=== PATIENT | male | born 2000 ===

== ENCOUNTER 2025-03-13 05:45 | Day surgery (SDC) | payer BC, MEDICAID, SELFPAY ==
[2025-03-13] VITALS (14 sets, daily range): BP systolic 105–119; BP diastolic 50–80; PULSE 49–68; RESP 8–16; TEMP 36–36.6; O2SAT 98–100; BMI 20.4
[2025-03-13] MEDS: Lactated Ringers 1,000 ML 80 ML IV (06:46)
--- NOTE | 2025-03-13 06:59 | W.ANESPRE ---
General Info Date of Service Date Performed: 03/13/25 Height: 6 ft Weight: 68.4 kg Body Mass Index (BMI): 20.4 Surgical Procedure: Operation Date: 03/13/25 07:40 Proposed Procedure Side Surgeon p Circumcision Alfonzo Bradley MD Meds Allergies and Home Medications Allergies Allergy/AdvReac Type Severity Reaction Status Date / Time fluoxetine Allergy Unknown Verified 03/13/25 06:32 Home Medication Medication Instructions Recorded Unknown [No Known Home Meds] 03/03/25 Current Visit Medications: Current Medications Generic Name Dose Route Start Last Admin Trade Name Freq PRN Reason Stop Dose Admin Ringer's Solution 1,000 mls @ 80 mls/hr 03/13/25 06:00 03/13/25 06:46 IV 03/13/25 23:59 80 mls/hr INFUSION ANNA Administration Cefazolin Sodium/Dextrose 2 gm in 50 mls @ 100 mls/hr 03/13/25 06:00 Ancef Duplex IVPB 03/13/25 23:59 PREOP ANNA IV Miscellaneous Supplies 1 each 03/13/25 06:00 Iv Access IV 03/13/25 23:59 DIRECTED ANNA Sodium Chloride 0 ml 03/13/25 06:00 Normal Saline Flush 10 Ml Syr IV 03/13/25 23:59 PRN PRN Sodium Chloride 0 ml 03/13/25 06:00 Normal Saline 10 Ml Vial IJ 03/13/25 23:59 DIRECTED PRN Sterile Water 0 ml 03/13/25 06:00 Water,Injection,Sterile 10 Ml Vial IJ 03/13/25 23:59 DIRECTED PRN PFSH Medical History Medical History Phimosis Surgical History Surgical History Hx of knee surgery Tobacco Smoking/Tobacco Use Status: Former Tobacco Use Substance Use Substance use: Occasionally Substance use type: marijuana Vital Signs and Lab Results Vital Signs Most Recent Vital Signs in EMR: Most Recent Vital Signs Temp Pulse Resp BP Pulse Ox 36.6 C 68 16 119/80 99 03/13/25 06:27 03/13/25 06:27 03/13/25 06:27 03/13/25 06:27 03/13/25 06:27 Anesthesia Assessment and Plan Anesthesia History Personal History: No History of Anesthesia Complications Family History: No Family History of Anesthesia Complications Exercise Tolerance Exercise Tolerance: Metabolic Equivalents>4 Pertinent Negatives Pertinent Negatives: No Symptoms of GERD Cardiac & Pulmonary Exam Cardiac Exam: Normal S1/S2 Heart Sounds Pulmonary Exam: Clear Bilateral Breath Sounds Implantable Cardiac Device Does patient have a Pacemaker or an ICD?: No Airway Exam Known Difficult Airway: No Mallampati Class: 2 Mouth Opening: Normal (> 3cm) Thyromental Distance: Greater than 3 cm Neck Range of Motion: Full ROM Neck Circumference: Normal Teeth Condition: Normal Dentition ASA Classification ASA Score: ASA 2 Emergency Case?: No NPO Status NPO Status: NPO Clears >2 hours, Solids >8 hours Anesthesia Plan Resuscitation Status: Full Code Anesthesia Technique: General Anesthesia Airway Planned: LMA Monitors Used: Standard Monitors and SedLine
--- NOTE | 2025-03-13 07:00 | W.PM.HP.N ---
Date of service: 03/13/25 Time of Service: 07:01 Assessment and Plan Assessment and plan (1) Phimosis: Assessment and plan: For circumcision History of Present Illness History of Present Illness Chief Complaint: Phimosis Narrative: Enrike is a 24-year-old male referred to urology by his PCP for phimosis. Patient notes that he is having difficulty and pain with retracting his foreskin. The skin has always been able to be replaced back over the glans. Sexual activity can be uncomfortable. He has never tried any type of topical steroid cream. He reports there is no buddhist basis for him to not be circumcised. No history of infections related to the uncircumcised area. LUTS are not affected by his phimosis. He has never had surgery to this area. Review of Systems Narrative: No fevers or chills No vision change or dysphasia No diabetes or thyroid dysfunction No shortness of breath, cough or hemoptysis No chest pain or palpitations No nausea, vomiting, hepatitis, ulcers, jaundice, diarrhea or constipation No seizures, strokes or peripheral neuropathy No bleeding disorders or anemia No gout PFSH Medical History Phimosis Surgical History Hx of knee surgery Social History Smoking/Tobacco Use Status: Former Tobacco Use Quit Date: 05/15/18 Smoking risk assessment performed?: Yes Drug use: Occasionally Substance use type: marijuana Housing: apartment Do you feel safe at home: Yes Do you feel safe in your relationship?: Yes Meds Allergies and Home Medications Allergies Allergy/AdvReac Type Severity Reaction Status Date / Time fluoxetine Allergy Unknown Verified 03/13/25 06:32 Home Medications Medication Instructions Recorded Confirmed Type Unknown [No Known Home Meds] 03/03/25 03/11/25 History Exam Const General: cooperative Neck Neck: supple Resp Effort & Inspection: normal respiratory effort Auscultation: clear to auscultation bilaterally Cardio Rate: regular rate Rhythm: regular rhythm GI Palpation: soft Penis: phimosis Neuro General: patient alert, patient awake and patient oriented x3 Results Last Vital Signs Temp 36.6 C 03/13/25 06:27 Pulse 68 03/13/25 06:27 Resp 16 03/13/25 06:27 BP 119/80 03/13/25 06:27 Pulse Ox 99 03/13/25 06:27 Time Spent Time spent with Patient: <40 minutes Time was spent: other
[2025-03-13] MEDS: ceFAZolin 2 GM/50 ML BAG IVPB (07:37)
[2025-03-13] MEDS: Bupivacaine 0.5% Pres-Free 30 ML VIAL (08:25)
--- NOTE | 2025-03-13 08:30 | W.PM.DSUDISC ---
Date of service: 03/13/25 Discharge Plan Disposition Patient Disposition: Home Condition: Stable Discharge Details Reason For Visit: circumcision Attending Provider: Alfonzo Bradley Primary Care Provider: Russell Garcia Home Meds and New Rx's Prescriptions: New tramadol 50 mg tablet 50 mg PO Q6H PRN (Reason: pain) Qty: 20 0RF Rx Instructions: may take with tylenol and NSAIDs Discharge Instructions Additional Instructions: If dressing is still present tomorrow AM, get dressing wet then unwrap to remove - no need to replace any bandage but place antibiotic ointment to incision site once or twice a day followup 2 to 3 weeks for a wound check Stand Alone Forms: Anesthesia Discharge Inst., DSU Post-op CircumcNatalie abreu (DSU) Activity:: no lifting/straining for minimum of 48 hours Remove Dressings/Wound Care:: 24 hours Shower/Bathe:: 24 hours Diet:: As Tolerated Discharge Orders Discharge Orders: Discharge Order (Routine); Ordered 03/13/25 Ordered By: Alfonzo Bradley DS: Diagnosis Discharge Diagnosis (1) Phimosis:
--- NOTE | 2025-03-13 08:37 | W.PM.OP ---
Operative Note Operative Note PRE-OP DIAGNOSIS: Phimosis POST-OP DIAGNOSIS: same PROCEDURE: circumcision SURGEON: Alfonzo Bradley ANESTHESIA TYPE: Local By Surgeon and General LMA/ETT Refer to Anesthesia Record ESTIMATED BLOOD LOSS: 25 PATHOLOGY: none sent COMPLICATIONS: None Patient was transported to: PACU Patient's condition: stable Indications: This is a 24-year-old gentleman who is uncircumcised. He has had progressive difficulty with retracting the skin over the glans and replacing the skin back over the glans. He has discomfort with sexual activity. He presents for a circumcision. Findings: phimosis Procedure Description: The patient was given IV antibiotics and brought to the operating room on 03/13/2025. After successful induction of general anesthesia, he was placed in the supine position. His genitalia was prepped and draped. A penile field block was performed with half percent Marcaine. A dorsal penile nerve block was performed as well. A circumferential incision was made on the outer aspect of the foreskin at the level of the coronal sulcus. The skin was then retracted and a second incision was made on the inner aspect of the foreskin approximately a centimeter below the coronal sulcus. The incisions were then interconnected and the redundant skin was removed. Any bleeding points were cauterized with the Bovie. Once hemostasis had been obtained, the skin edges were then reapproximated using simple interrupted 4-0 chromic sutures. Xeroform gauze was then applied to the incision site. The patient tolerated the procedure well with no complications. He was taken to the recovery room in stable condition. Date of Procedure: 03/13/25
--- NOTE | 2025-03-13 09:29 | W.ANESPOSTOP ---
Postoperative Evaluation Date, Time and Location Date Performed: 03/13/25 Time Performed: 09:29 Patient Location: Day Surgery Unit Vital Signs Most Recent Imported Vital Signs: Most Recent Vital Signs Temp Pulse Resp BP Pulse Ox 36 C L 53 L 14 106/75 100 03/13/25 09:23 03/13/25 09:23 03/13/25 09:23 03/13/25 09:23 03/13/25 09:23 Pain Score Most Recent Pain Score: Most Recent Pain Score Pain Level 1 03/13/25 09:19 Assessment Mental Status: Awake (Alert & Oriented to Patient Baseline) Airway and Respiratory Function: Patent airway with normal (patient baseline) respiratory exam Cardiovascular Function: Hemodynamically Stable Hydration Status: Adequately Hydrated Nausea & Vomiting: No Nausea or Vomiting Pain: Pt. Denies Any Pain Peripheral Nerve Block: Patient did not receive a nerve block
== END 2025-03-13 10:25 | disposition home or self-care (01) ==
PROVIDERS: Visit Provider Urology
PROC: (CPT 54161; principal; 2025-03-13 07:30)
DX: N47.1 Phimosis (principal)
CPT/HCPCS: 54161; J0131; J0665; J0690; J1100; J1885; J2003; J2405; J2704; J3010

== ENCOUNTER 2025-03-20 12:46 | Outpatient (REF) | payer BC, MEDICAID, SELFPAY | END 2025-03-20 12:47 | disposition home or self-care (01) | LOC: LBN 12:46 | PROVIDERS: Visit Provider Nurse Practitioner Gerontology | DX: S31.20XA Unspecified open wound of penis, initial encounter (principal) | CPT/HCPCS: 87077; 87070; 87186; 87205 ==

== ENCOUNTER 2025-03-30 08:09 | Emergency (ER) | payer BC, MEDICAID, SELFPAY ==
[2025-03-30 08:12] VITALS: BP 130/84; PULSE 76; RESP 16; TEMP 35.9; O2SAT 98
[2025-03-30 08:54] VITALS: BP 117/70; PULSE 98; RESP 15; O2SAT 98
--- NOTE | 2025-03-30 09:26 | ED.GENADUL_ITS ---
Discharge Plan Disposition Patient Disposition: Home Condition: Stable Discharge Details Clinical Impression: Bleeding from wound Primary Care Provider: Russell Garcia ED Provider: Jorgito Laguna Home Meds and New Rx's Prescriptions: Discontinued tramadol 50 mg tablet 50 mg PO Q6H PRN (Reason: pain) Qty: 20 0RF Rx Instructions: may take with tylenol and NSAIDs Discharge Instructions Instructions: Laceration Repair With Glue ED Additional Instructions: Penile wound bleeding was controlled today with skin adhesive. Avoid trauma to the area. Please follow-up with urology. Call tomorrow. Return to the ER immediately for any worsening or new concerning symptoms. Stand Alone Forms: Portal Information, Work Release HPI General Mode of arrival: ambulatory . Date/Time Provider Initiated Documentation: 03/30/25 08:22 . Limitations to Documentation: no limitations . Information obtained by: patient . HPI Narrative: HISTORY OF PRESENT ILLNESS The patient is a 24-year-old male who presents to the emergency department for bleeding from a recent circumcision site. He underwent a circumcision approximately 3 weeks ago, on a . Postoperatively, he developed a hematoma at the surgical site, which subsequently became infected. This was managed with a course of antibiotics, which he has since completed. A recent follow-up visit to the urology clinic revealed wound healing with phimosis. He reports no history of bleeding disorders or other medical conditions. Additionally, he reports no trauma to the area. Wound started to bleed sometime last night, woke up with blood in the area, and wound has continued to bleed. Related Data Allergies Allergy/AdvReac Type Severity Reaction Status Date / Time fluoxetine Allergy Unknown Verified 03/30/25 08:14 General Stated Complaint: Male Reproductive Problem RAY: 4 Review of Systems Genitourinary Genitourinary: Reports as per HPI Exam Penis: phimosis and swelling Other: 2 mm open wound at base of glans, oozing blood Course Vital Signs Vital signs: Vital Signs Temperature 35.9 C L 03/30/25 08:12 Pulse 76 03/30/25 08:12 Respiratory Rate 16 03/30/25 08:12 Blood Pressure 130/84 03/30/25 08:12 Pulse Oximetry 98 03/30/25 08:12 Temperature 35.9 C L 03/30/25 08:12 Temperature Source Tympanic 03/30/25 08:12 Pulse 98 H 03/30/25 08:54 Respiratory Rate 15 03/30/25 08:54 Respiratory Effort Normal, Non-Labored 03/30/25 08:54 Respiratory Depth Normal 03/30/25 08:54 Respiratory Pattern Normal 03/30/25 08:54 Blood Pressure 117/70 03/30/25 08:54 Blood Pressure Mean 85 03/30/25 08:54 Blood Pressure Position Sitting 03/30/25 08:54 Pulse Oximetry 98 03/30/25 08:54 Oxygen Delivery Method Room Air 03/30/25 08:54 Oxygen Flow Rate 0 03/30/25 08:54 Pain Level 0 03/30/25 08:12 Medical Decision Making ASSESSMENT AND PLAN Initial Assessment: 24-year-old male with post-circumcision bleeding, mild phimosis contributing. ED Course: - Source of bleeding identified as small open wound. Direct manual pressure applied and bleeding was controlled. - Skin adhesive used to achieve hemostasis without complication. - Plan for discharge with outpatient follow-up with urology. I advised him to call Dr. Bradley's office tomorrow. Usual and customary discharge instructions were reviewed. Procedure note Time: 915 Procedure: Wound repair Consent: Verbal Note: Skin adhesive applied to bleeding wound and allowed to dry. Hemostasis achieved. No complications. Clinical Impression: - Post-circumcision wound bleeding This document was written with the assistance of EDDIE De Leon. The patient consented to its use. PFSH All Active Problems (Updated 03/30/25 @ 09:34 by Jorgito Laguna MD) Bleeding from wound (Acute) Medical History Phimosis Surgical History Hx of knee surgery Social History Smoking/Tobacco Use Status: Former Tobacco Use Quit Date: 05/15/18 Smoking risk assessment performed?: Yes Alcohol Intake: current Alcohol Intake frequency: a few times a week Alcohol type: beer Drug use: Occasionally Substance use type: marijuana Housing: apartment Do you feel safe at home: Yes Do you feel safe in your relationship?: Yes
[2025-03-30 09:44] VITALS: BP 118/70; PULSE 74; RESP 16; O2SAT 98
== END 2025-03-30 09:48 | disposition home or self-care (01) ==
PROVIDERS: Emergency Provider Student in an Organized Health Care Education/Training Program
DX: T81.89XA Other complications of procedures, not elsewhere classified, initial encounter
CPT/HCPCS: 99282 ×2